=== PATIENT | female | born 1940 | race Caucasian/White ===

== ENCOUNTER 2018-07-31 10:55 | Emergency (ER) | payer MEDICARE, OTHER ==
[~2018-07-31] VITALS: Ht 157.5 cm; Wt 71.0 kg
[2018-07-31] MEDS ORDERED: bacitracin 15gm ointment TP ONE (12:20)
[2018-07-31] MEDS ORDERED: AMOX-422 PO (12:22)
[2018-07-31 12:30] VITALS: BP 152/98
== END 2018-07-31 12:32 | disposition home or self-care (01) ==
LOC: ER 10:55
DX: S30.0XXA Contusion of lower back and pelvis, initial encounter (principal); E11.9 Type 2 diabetes mellitus without complications; Z88.1 Allergy status to other antibiotic agents; Z88.8 Allergy status to other drugs, medicaments and biological substances; Z79.2 Long term (current) use of antibiotics; W54.0XXA Bitten by dog, initial encounter; Y93.89 Activity, other specified; Y92.89 Other specified places as the place of occurrence of the external cause; Y99.8 Other external cause status
CPT/HCPCS: 99283

== ENCOUNTER 2020-03-12 08:11 | Outpatient (CLI) | payer MEDICARE, OTHER | END 2020-03-12 23:59 | disposition home or self-care (01) | LOC: 64 CT 08:11 | PROVIDERS: ATTEND Family Medicine | DX: I25.10 Atherosclerotic heart disease of native coronary artery without angina pectoris (principal); M51.34 Other intervertebral disc degeneration, thoracic region | CPT/HCPCS: 75571 ==

== ENCOUNTER → 2024-04-29 | Outpatient (CLI) | payer MEDICARE ==
[2024-04-29 08:35] LABS: ALBUMIN 3.5 G/DL (3.4-5.0); ANION GAP 9 (8-16); BLOOD UREA NITROGEN 20 MG/DL (7-18); BUN/CREATININE RATIO 23.5 (10.0-20.0); CHLORIDE 107 MMOL/L (99-107); CHOL/HDL RATIO 3.3 (0.00-4.99); CHOLESTEROL 145 MG/DL (0-200); CREATININE 0.85 MG/DL (0.40-0.90); FREE T4 (FREE THYROXINE) 0.94 NG/DL (0.73-1.40); GLUCOSE 106 MG/DL (70-104); HDL CHOLESTEROL 44 MG/DL (35-60); LDL CHOLESTEROL 79 MG/DL (50-100); POTASSIUM 3.9 MMOL/L (3.5-5.1); SODIUM 143 MMOL/L (135-145); THYROID STIMULATING HORMONE 2.65 ulU/ml (0.34-4.50); TOTAL CARBON DIOXIDE 26.9 MMOL/L (24-32); TRIGLYCERIDES 129 MG/DL (20-135); eGFR 64 ML/MIN
[2024-04-30 16:53] LABS: CREATININE, URINE 98.8 mg/dL (Not Estab.); MICROALBUMIN,U,RANDOM 5.4 ug/mL (Not Estab.)
== END | disposition home or self-care (01) ==
LOC: LAB 07:12
PROVIDERS: ATTEND Family Medicine
DX: I10 Essential (primary) hypertension (principal); E78.5 Hyperlipidemia, unspecified; R73.03 Prediabetes
CPT/HCPCS: 36415; 80048; 80061; 82043; 82570; 83036; 84439; 84443